=== PATIENT | male | born 1955 | race Caucasian/White ===

== ENCOUNTER 2016-10-13 12:28 | Day surgery (SDC) | payer OTHER ==
[~2016-10-13] VITALS: Ht 175.3 cm; Wt 117.9 kg
[~2016-10-13 12:28] MED LIST: ATORVASTATIN CA10 MG PO; FISH OIL 1,0001 EAC7 PO; HYDROCHLOROTH12.5 M3 PO; LOSARTAN POTAS100 MG PO; METOPROLOL SUCC50 MG PO; OCUVITE EYE +1 EACH PO
[2016-10-13 13:05] VITALS: BP 119/67
[2016-10-13 17:48] VITALS: BP 121/58
[2016-10-13 18:15] VITALS: BP 115/57
== END 2016-10-13 18:33 | disposition home or self-care (01) ==
LOC: SDC 12:28 → EDSTATUS 16:06 → SDC 16:23
DX: H33.42 Traction detachment of retina, left eye (principal); H33.002 Unspecified retinal detachment with retinal break, left eye; I10 Essential (primary) hypertension; Z87.891 Personal history of nicotine dependence; Z85.46 Personal history of malignant neoplasm of prostate
CPT/HCPCS: 93005; J0690; J1100; J1120; J1885; J2250; J2795; J3010; J3300